=== PATIENT | female | born 1960 | race Caucasian/White ===

== ENCOUNTER 2020-11-03 08:40 | Emergency (ER) | payer MEDICARE, MEDICAID, SELFPAY ==
--- NOTE | ~2020-11-03 | XR_ITS ---
XR chest 2V 11/03/2020 09:22 Indication: Shortness of breath. Lower extremity swelling. Procedure: PA and lateral views of the chest Comparison: No prior studies for comparison. Findings: Heart size is normal. Right lung clear. Left basilar atelectasis. No significant effusion, edema or pneumothorax. Impression: 1: Left basilar atelectasis. Reviewed, dictated and finalized at location A. Impression: 1: Left basilar atelectasis.
--- NOTE | ~2020-11-03 | US_ITS ---
EXAMINATION: US venous doppler [facility] DATE: 11/03/2020 10:58 INDICATION: Bilateral lower limb pain and swelling TECHNIQUE: Grayscale ultrasound images without and with compression and Doppler ultrasound images of the bilateral lower extremity veins were obtained. COMPARISON: None. FINDINGS: The visualized portions of right common femoral vein, profunda (deep) femoral vein, femoral vein, pop liteal vein, posterior tibial veins, peroneal veins, gastrocnemius vein and greater saphenous vein ou tflow are patent. The visualized portions of left common femoral vein, profunda femoral vein, femoral vein, popliteal v ein, posterior tibial veins, peroneal veins, gastrocnemius vein and greater saphenous vein outflow ar e patent. IMPRESSION: 1. No deep venous thrombosis in either lower limb. Reviewed, dictated and finalized at location A.
[2020-11-03 08:53] VITALS: BP 174/91; PULSE 78; RESP 22; TEMP 36.6; O2SAT 93
--- NOTE | 2020-11-03 09:05 | ECG_ITS ---
Measurements Intervals [place] Rate: 73 P: 12 MN: 155 QRS: -55 QRSD: 185 T: 16 QT: 452 QTc: 500 Interpretive Statements SINUS RHYTHM RIGHT BUNDLE BRANCH BLOCK BASELINE ARTIFACT- II, III, AVR, AVF, V1, V3-V6 ABNORMAL ECG Electronically Signed On 11-03-2020 9:45:16 CDT by Corwin Eugene D.O.
[2020-11-03 09:21] LABS: Basophils Percent Auto 0.6 % (0.2-1.2); Eosinophils Absolute Auto 0.2 K/mm3 (0-0.3); Eosinophils Percent Auto 2.8 % (0-4.4); Hematocrit 39.6 % (37.0-47.0); Hemoglobin 12.5 g/dL (12.0-15.0); Immature Granulocyte Absolute 0.02 K/mm3 (0.00-0.031); Immature Granulocyte Percent A 0.3 % (0-0.5); Lymphocytes Absolute Auto 2.38 K/mm3 (0.9-3.2); Lymphocytes Percent Auto 36.9 % (18.3-44.2); Mean Corpuscular HGB Conc 31.6 g/dl (32-36); Mean Corpuscular Hemoglobin 27.4 pg (26-34); Mean Corpuscular Volume 86.8 fl (80-100); Monocytes Absolute Auto 0.6 K/mm3 (0.1-0.6); Monocytes Percent Auto 8.8 % (2.6-8.5); Neutrophils Absolute Auto 3.3 K/mm3 (1.3-6.7); Neutrophils Percent Auto 50.6 % (45.5-73.1); Platelet Count Result 244 k/mm3 (150-375); Red Blood Count 4.56 M/mm3 (4.2-5.4); Red Cell Distribution Width 18.2 % (11.5-14.5); White Blood Count 6.5 K/mm3 (4.5-10.0)
[2020-11-03 09:38] LABS: Anion Gap 6 mmol/L (8-16); Blood Urea Nitrogen 16 mg/dL (7-17); Calcium 9.7 mg/dL (8.4-10.2); Carbon Dioxide 29 mmol/L (22-30); Chloride 103 mmol/L (98-107); Estimated CRCL calculation 111 ml/min; Estimated Glomerular Filt Rate > 60; Glucose 107 mg/dL (65-110); Sodium 138 mmol/L (137-145)
--- NOTE | 2020-11-03 09:46 | ED.EXTPRO ---
HPI - Extremity Problem General Chief complaint: Extremity Problem,Nontraumatic Stated complaint: B/L LE swelling x 4 days Time Seen by Provider: 11/03/20 08:57 Source: patient and RN notes reviewed Mode of arrival: ambulatory Limitations: no limitations History of Present Illness HPI Narrative: This is a 60 year old female smoker with history of COPD, bipolar 1, hypertension who presents for evaluation of bilateral leg swelling. She states she started having leg swelling on Saturday and it has progressively worsened. She has Lasix prescribed as needed so she started taking it on Saturday. She has been taking 40 mg daily since Saturday. She states she was told to come in to ER because she developed shortness of breath last night. She reports mild nonproductive cough but she denies chest pain. She denies fever, chills, nausea, vomiting or diarrhea. She denies history of DVT of CHF. Related Data Allergies Allergy/AdvReac Type Severity Reaction Status Date / Time carbamazepine [From Tegretol] Allergy Other Verified 11/03/20 09:02 lamotrigine [From Lamictal] Allergy Rash Verified 11/03/20 09:02 amoxicillin AdvReac Gastrointestinal Verified 11/03/20 09:02 Upset erythromycin base AdvReac Nausea and Verified 11/03/20 09:02 Vomiting morphine AdvReac Other Verified 11/03/20 09:02 prednisone AdvReac Other Verified 11/03/20 09:02 Review of Systems Review of Systems: All systems reviewed & are unremarkable except as noted in HPI and below PMFSH Past Medical History Medical History (Updated 11/03/20 @ 12:00 by Karime Caruso MD) Bipolar 1 disorder Hypertension Surgical History Surgical History (Updated 11/03/20 @ 18:24 by Karime Caruso MD) No pertinent past surgical history Social History Social History (Updated 11/03/20 @ 09:52 by Karime Caruso MD) Smoking status: Current every day smoker Gender identity (if verbalized by the patient): Female Exam Const: General: no acute distress and alert Orientation/consciousness: patient oriented x3 Eyes: EOM: EOMs intact bilaterally Resp: Effort & Inspection: normal respiratory effort, no retractions and not tachypneic Auscultation: wheezes expiratory wheezes Other: able to speak in complete sentences with out difficulty Cardio: Rate: regular rate Rhythm: regular rhythm Heart sounds: no murmurs GI: GI Palp: Yes Soft to palpation, No Tenderness to palpation present (GI) and No Guarding due to palpation present (GI) Auscultation: normal bowel sounds Skin: Other: bilateral lower extremity with hyperpigmentation from venous stasis Neuro: General: patient oriented x3 and moves all extremities Extrem: Other: bilateral nonpitting swelling lower legs not including feet Psych: Mental Status: mental status grossly normal Affect: normal affect Course Reevaluation(s) Reevaluation #1: PAtient states she feels better. I discussed labs and imaging are unremarkable. She now states her compression stockings are at her old apartment so likely cause of swelling. Her shortness of breath appears to be due to her copd. She was able to ambulate and maintain oxygen saturation 95 % on room air. Date: 11/03/20 Time: 11:55 Vital Signs Vital signs: Vital Signs Temperature 97.9 F 11/03/20 08:53 Pulse Rate 78 11/03/20 08:53 Respiratory Rate 22 H 11/03/20 08:53 Blood Pressure 174/91 H 11/03/20 08:53 Pulse Oximetry 93 11/03/20 08:53 Temperature 97.9 F 11/03/20 08:53 Pulse Rate 64 11/03/20 11:36 Respiratory Rate 16 11/03/20 11:36 Blood Pressure 124/77 11/03/20 11:36 Pulse Oximetry 95 11/03/20 11:36 MDM - Extremity (Nontraumatic) Lab Data Result diagrams: 11/03/20 09:14 11/03/20 09:14 Labs: Lab Results 11/03/20 11/03/20 11/03/20 Range/Units 09:14 09:14 09:14 WBC 6.5 (4.5-10.0) K/mm3 RBC 4.56 (4.2-5.4) M/mm3 Hgb 12.5 (12.0-15.0) g/dL Hct 39.6 (37.0-47.0)
[2020-11-03 09:47] LABS: INR 0.8; Partial Thromboplastin Time 24.1 SECONDS (22.3-36.8); Prothrombin Time 11.3 Seconds (11.1-14.7)
[2020-11-03 09:49] LABS: NT Pro B Type Natriuretic Pept 67 pg/mL (5-100); Troponin I < 0.012 ng/mL (0.000-0.034)
[2020-11-03] MEDS: ALBUTEROL SULFATE NEB 2.5 MG/0.5 ML INH 5 MG INHALATION (09:53)
[2020-11-03] MEDS: IPRATROPIUM BR 0.02% INH SOLN 0.5 MG/2.5 ML VIAL INHALATION (09:53)
[2020-11-03 09:54] VITALS: PULSE 73; RESP 20
[2020-11-03 10:00] LABS: Base Excess ABG 3.2 mEq/l (+/-2.0); Carboxyhemoglobin 3.4 % THb (0-2.0); Fractional Inspired Oxygen 21 %; HCO3 ABG 27.9 mEq/l (22.0-26.0); Methemoglobin ABG 0.1 %THb (0-1.5); Oxygen Content ABG 15.6 %vol (16.0-22.0); Oxyhemoglobin 86.1 % THb (90.0-100.0); PO2 ABG 56.2 mmHg (80.0-100.0); PO2 FiO2 Ratio Arterial Blood 2.68 %; Reduced Hemoglobin 10.4 %THb (0-5.0); Total Hemoglobin 12.9 g/dL (12.0-18.0)
[2020-11-03 10:02] LABS: Device ROOM AIR; Modified Allen's Test Pass; Site Drawn RIGHT RADIAL
[2020-11-03 10:02] LABS: Alanine Aminotransferase 19 U/L (4-35); Albumin Level 3.8 g/dL (3.5-5.1); Alkaline Phosphatase 125 U/L (38-126); Aspartate Amino Transferase 26 U/L (14-36); Bilirubin,Total 0.4 mg/dL (0.2-1.3)
[2020-11-03 11:36] VITALS: BP 124/77; PULSE 64; RESP 16; O2SAT 95
[2020-11-03] MEDS: FUROSEMIDE INJ 40 MG/4 ML VIAL IV PUSH (11:36)
== END 2020-11-03 12:25 | disposition home or self-care (01) ==
PROVIDERS: Emergency Provider General Practice; PCP Family Medicine
DX: R60.0 Localized edema (principal); J44.1 Chronic obstructive pulmonary disease with (acute) exacerbation; I10 Essential (primary) hypertension; F17.200 Nicotine dependence, unspecified, uncomplicated
CPT/HCPCS: 36415; 36600; 71046; 80048; 80076; 82375; 82805; 83050; 83880; 84484; 85025; 85610; 85730; 93005; 93970; 94640; 96374; 99284; J1940

== ENCOUNTER → 2022-01-15 13:48 | Outpatient (CLI) | payer MEDICARE, MEDICAID, SELFPAY ==
--- NOTE | ~2022-01-15 | US_ITS ---
EXAMINATION: US soft tissue lower back DATE: 01/15/2022 14:24 INDICATION: Low back lump. TECHNIQUE: Multiple grayscale and Doppler ultrasound images of the low back were obtained. COMPARISON: None FINDINGS: There is no abnormal mass in the patient's area of concern in the lower back. IMPRESSION: 1. No abnormal mass in the patient's area of concern in the lower back. Reviewed, dictated and finalized at location A.
--- NOTE | ~2022-01-15 | US_ITS ---
EXAMINATION: US soft tissue LE LT DATE: 01/15/2022 14:26 INDICATION: Pain and bruising at the left hip and knee post fall 3 weeks prior TECHNIQUE: Multiple grayscale and Doppler ultrasound images of the regions of concern at the left hip and lateral left knee were obtained. COMPARISON: None FINDINGS: Nonspecific 13.1 x 11.1 x 7.4 cm very hypoechoic fluid collection the subcutaneous tissues at the reg ion of concern. Couple smaller anechoic fluid collections regions concern at the lateral left knee me asuring 2.0 x 1.5 x 1.8 cm and 2.0 x 1.1 x 0.6 cm. No internal vascular flow within the lesions on co edy Doppler to suggest aneurysm or surrounding hyperemia to elevate suspicion for abscess. No abnormal soft tissue masses identified. IMPRESSION: 1. 3 fluid collections, the largest measuring up to 13.1 cm maximal diameter the subcutaneous tissues overlying the left hip and 2 smaller lesions which measure up to 2 cm maximal diameter at the latera l left knee which given the history of prior trauma most likely represent hematomas. Reviewed, dictated and finalized at location B. IMPRESSION: 1. 3 fluid collections, the largest measuring up to 13.1 cm maximal diameter th e subcutaneous tissues overlying the left hip and 2 smaller lesions which measu re up to 2 cm maximal diameter at the lateral left knee which given the history of prior trauma most likely represent hematomas.
== END ==
PROVIDERS: PCP Hospitalist; Visit Provider Hospitalist
DX: S70.02XA Contusion of left hip, initial encounter (principal); X58.XXXA Exposure to other specified factors, initial encounter; M25.552 Pain in left hip
CPT/HCPCS: 76705; 76882

== ENCOUNTER 2022-04-08 09:12 | Emergency (ER) | payer MEDICARE, MEDICAID, SELFPAY ==
[2022-04-08] VITALS (17 sets, daily range): BP systolic 109–158; BP diastolic 58–99; PULSE 68–85; RESP 11–33; TEMP 36.4; O2SAT 93–100
--- NOTE | ~2022-04-08 | XR_ITS ---
EXAMINATION: XR chest 2V DATE: 04/08/2022 09:59 INDICATION: Congestion. Cough. Body aches. TECHNIQUE: Frontal and lateral views of the chest were obtained. COMPARISON: Chest 2 views 11/03/2020 FINDINGS: There is mild atelectasis in the lower lung zones. No pleural effusion or pneumothorax. Car diomegaly is noted. There is a total right shoulder arthroplasty. IMPRESSION: 1. Mild atelectasis in the lower lung zones. 2. Cardiomegaly. Reviewed, dictated and finalized at location A. TS OFFICER
[2022-04-08 10:18] LABS: Influenza A QL RT-PCR Negative (Negative); Influenza B QL RT-PCR Negative (Negative); SARS-CoV-2 RNA PCR Negative
[2022-04-08] MEDS: predniSONE 20 MG TABLET PO (12:34)
[2022-04-08] MEDS: IPRATROPIUM BR 0.02% INH SOLN 0.5 MG/2.5 ML VIAL 1 MG INHALATION (12:37)
[2022-04-08] MEDS: ALBUTEROL SULFATE NEB 2.5 MG/3 ML INH 10 MG INHALATION (12:37)
--- NOTE | 2022-04-08 13:12 | ED.URI ---
HPI - URI/Sore Throat General Chief Complaint: Upper Respiratory Infection Stated Complaint: SOB Time Seen by Provider: 04/08/22 12:02 History of Present Illness HPI Narrative: Patient is a 61-year-old female who presents ER with shortness of breath. Reports she has had a cough for the last 3 weeks associated with this. Shortness of breath worsening over the last couple days. She has been using her inhalers at home without relief. She has not been on any prednisone/steroids. She reports when she takes high-dose steroids interact with her psychiatric medication give her a rough time. She has no chest pain or chest pressure. Cough is minimally productive. No hemoptysis. No chest pain no exertional chest discomfort. No known COVID exposure. Related Data Allergies Allergy/AdvReac Type Severity Reaction Status Date / Time carbamazepine [From Tegretol] Allergy Other Verified 11/03/20 09:02 lamotrigine [From Lamictal] Allergy Rash Verified 11/03/20 09:02 amoxicillin AdvReac Gastrointestinal Verified 11/03/20 09:02 Upset erythromycin base AdvReac Nausea and Verified 11/03/20 09:02 Vomiting morphine AdvReac Other Verified 11/03/20 09:02 prednisone AdvReac Other Verified 11/03/20 09:02 Review of Systems Constitutional: Constitutional: Reports no additional constitutional complaints ENT: Reports nasal congestion and Denies sore throat Cardiovascular: Cardiovascular: Reports no additional cardiovascular complaints Respiratory: Respiratory: Reports no additional respiratory complaints [facility] Past Medical History Medical History (Updated 04/08/22 @ 14:27 by Jared Manrique MD) Bipolar 1 disorder COPD (chronic obstructive pulmonary disease) Hypertension Surgical History Surgical History (Updated 11/03/20 @ 18:24 by Karime Caruso MD) No pertinent past surgical history Social History Social History (Updated 11/03/20 @ 09:52 by Karime Caruso MD) Smoking status: Current every day smoker Gender identity (if verbalized by the patient): Female Exam Narrative: GENERAL: Well-appearing, obese, and in no acute distress. HEAD: Normocephalic, atraumatic. CHEST: Diffuse rhonchi and wheezing while exhaling. No respiratory distress. HEART: Regular rate and rhythm. Normal peripheral pulses. EXTREMITIES: Normal range of motion. No edema. SKIN: Warm, dry, no rash. NEURO: Alert and oriented x3. PSYCH: Normal mood and affect. Course Course Emergency Course: Patient still has some coarse breath sounds after hour-long nebulizer treatment. She feels improved. She feels comfortable with discharge and oral low-dose steroids at home. Recommend she follow-up with her PCP and she verbalized understanding. Patient without hypoxia and without pneumonia on x-ray. COVID testing negative. Symptoms felt to be mild worsening of patient's chronic disease with bronchitis. Vital Signs Vital signs: Vital Signs Temperature 97.6 F 04/08/22 09:17 Pulse Rate 77 04/08/22 09:17 Respiratory Rate 20 04/08/22 09:17 Blood Pressure 158/77 H 04/08/22 09:17 Pulse Oximetry 97 04/08/22 09:17 Oxygen Delivery Room Air 04/08/22 09:17 Temperature 97.6 F 04/08/22 09:17 Pulse Rate 85 04/08/22 14:15 Respiratory Rate 18 04/08/22 14:15 Blood Pressure 109/65 04/08/22 14:02 Pulse Oximetry 97 04/08/22 14:02 Oxygen Delivery Room Air 04/08/22 09:17 MDM - URI/Sore Throat Lab Data Labs: Lab Results 04/08/22 Range/Units 09:32 Influenza A (RT-PCR) Negative (Negative) Influenza B (RT-PCR) Negative (Negative) SARS-CoV-2 RNA (RT-PCR) Negative Discharge Plan Discharge Clinical Impression: Bronchitis Patient Disposition: Home, Self-Care Condition: Stable Instructions: Acute Bronchitis (ED) Additional Instructions: Return the ER if you have worsening shortness of breath, you cannot keep down food or water, you lose consciousness, you have additional c
== END 2022-04-08 14:45 | disposition home or self-care (01) ==
PROVIDERS: Emergency Medicine; Emergency Provider Emergency Medicine; PCP Hospitalist
DX: J40 Bronchitis, not specified as acute or chronic (principal); J44.9 Chronic obstructive pulmonary disease, unspecified; I10 Essential (primary) hypertension; F31.9 Bipolar disorder, unspecified; F17.200 Nicotine dependence, unspecified, uncomplicated; Z20.822 Contact with and (suspected) exposure to COVID-19
CPT/HCPCS: 71046; 87636; 94640; 99283; J7512